=== PATIENT | male | born 1965 | race Caucasian/White ===

== ENCOUNTER 2017-07-11 21:24 | Emergency (ER) | payer SELFPAY ==
[~2017-07-11] VITALS: Ht 170.2 cm; Wt 83.0 kg
[2017-07-11 21:51] VITALS: BP 174/90
== END 2017-07-12 01:42 | disposition left against medical advice (07) ==
LOC: ER 21:24
DX: R10.13 Epigastric pain (principal); R11.2 Nausea with vomiting, unspecified; Z53.21 Procedure and treatment not carried out due to patient leaving prior to being seen by health care provider